=== PATIENT | male | born 1995 | race Caucasian/White ===

== ENCOUNTER 2021-12-18 03:14 | Emergency (ER) | payer SELFPAY ==
[~2021-12-18] VITALS: Ht 175.3 cm; Wt 81.2 kg
[2021-12-18 03:29] LABS: BASO % 1 % (0-3); EOS # 0.1 x10^3/uL (0.0-0.7); EOS % 1 % (0-3); HEMATOCRIT 44.5 % (39.0-53.0); HEMOGLOBIN 15.4 g/dL (13.0-17.5); LYMPH # 2.8 x10^3/uL (1.0-4.8); LYMPH % 40 % (24-48); MEAN CORPUSCULAR HEMOGLOBIN 31 pg (25-35); MEAN CORPUSCULAR HGB CONC 35 g/dL (31-37); MEAN CORPUSCULAR VOLUME 88 fL (79-100); MONO # 0.4 x10^3/uL (0.0-1.1); MONO % 6 % (0-9); NEUT # 3.7 x10^3/uL (1.8-7.7); NEUT % 53 % (31-73); PLATELET COUNT 237 x10^3/uL (140-400); RED BLOOD COUNT 5.05 x10^6/uL (4.30-5.70); RED CELL DISTRIBUTION WIDTH 12.9 % (11.5-14.5); WHITE BLOOD COUNT 7.1 x10^3/uL (4.0-11.0)
--- NOTE | 2021-12-18 03:36 | PHYS DOC ---
Adult General Chief Complaint Chief Complaint: OVERDOSE HPI HPI The patient is a 26-year-old male who is otherwise healthy. He presents for evaluation of an apparent inadvertent overdose of oral narcotic. Patient and his friend apparently took what they thought was Percocet (per her report to the ambulance crew) and shortly thereafter he became obtunded. EMS were called. When they arrived on scene patient was down on the ground beside his car, GCS of 3. He was breathing and had a pulse. EMS administered intranasal followed by IV Narcan with immediate improvement in level of consciousness. During transport and upon arrival to the emergency department patient with GCS of 15, moving all extremities equally and denying complaints. States he does not remember exactly what happened. Vital signs are appropriate here and the patient is in no acute distress. Review of Systems Review of Systems A 12 point review of systems was completed and was negative except where noted in HPI above. Current Medications Current Medications Current Medications Medications (Trade) Dose Ordered Sig/Darren Start Time Stop Time Status Last Admin Dose Admin Ondansetron HCl (Zofran) 4 mg 1X ONCE 12/18/21 04:00 12/18/21 04:02 DC 12/18/21 04:01 4 MG Allergies Allergies Allergies Coded Allergies Type Severity Reaction Last Updated Verified No Known Drug Allergies 12/18/21 No Physical Exam Physical Exam 26-year-old male appearing nontoxic and in no acute distress. Head is normocephalic and atraumatic. Neck is supple and nontender. Oropharynx is moist. Lungs are clear to auscultation at all stations. There is a normal S1 and S2 without rubs or gallops and capillary refill is appropriate, less than 2 seconds globally. Abdomen is soft, nontender nondistended. Skin is warm and dry without cyanosis, clubbing or edema. Psychiatrically, the patient demonstrates appropriate mood and affect and is alert. Neurologically, cranial nerves II through XII are intact and there are no lateralizing deficits seen. Speech is normal. Language is normal. Coordination is normal. There is no dysmetria with [id number] or hrdy-tn-[id number] bilaterally. Strength is 5 out of 5 in all joints of bilateral upper and lower extremities. Sensation is intact light touch in bilateral upper and lower extremities. Patient ambulates with a narrow, steady, non-ataxic gait here in the emergency department and is alert and oriented x4. Current Patient Data Vital Signs Vital Signs Date Time Temp Pulse Resp B/P (MAP) Pulse Ox O2 Delivery O2 Flow Rate FiO2 12/18/21 05:47 66 18 141/64 (89) 96 Room Air Lab Values Laboratory Tests Test 12/18/21 03:23 White Blood Count 7.1 x10^3/uL (4.0-11.0) Red Blood Count 5.05 x10^6/uL (4.30-5.70) Hemoglobin 15.4 g/dL (13.0-17.5) Hematocrit 44.5 % (39.0-53.0) Mean Corpuscular Volume 88 fL (79-100) Mean Corpuscular Hemoglobin 31 pg (25-35) Mean Corpuscular Hemoglobin Concent 35 g/dL (31-37) Red Cell Distribution Width 12.9 % (11.5-14.5) Platelet Count 237 x10^3/uL (140-400) Neutrophils (%) (Auto) 53 % (31-73) Lymphocytes (%) (Auto) 40 % (24-48) Monocytes (%) (Auto) 6 % (0-9) Eosinophils (%) (Auto) 1 % (0-3) Basophils (%) (Auto) 1 % (0-3) Neutrophils # (Auto) 3.7 x10^3/uL (1.8-7.7) Lymphocytes # (Auto) 2.8 x10^3/uL (1.0-4.8) Monocytes # (Auto) 0.4 x10^3/uL (0.0-1.1) Eosinophils # (Auto) 0.1 x10^3/uL (0.0-0.7) Basophils # (Auto) 0.0 x10^3/uL (0.0-0.2) Sodium Level 142 mmol/L (136-145) Potassium Level 3.5 mmol/L (3.5-5.1) Chloride Level 101 mmol/L (98-107) Carbon Dioxide Level 26 mmol/L (21-32) Anion Gap 15 (6-14) H Blood Urea Nitrogen 14 mg/dL (8-26) Creatinine 1.2 mg/dL (0.7-1.3) Estimated GFR (Cockcroft-Gault) 74.4 BUN/Creatinine Ratio 12 (6-20) Glucose Level 206 mg/dL (70-99) H Calcium Level 8.7 mg/dL (8.5-10.1) Total Bilirubin 1.0 mg/dL (0.2-1.0) Aspartate Amino Transferase (AST) 9 U/L (15-37) L Alanine Aminotransferase (ALT) 17 U/L (16-63) Alkaline Phosphatase 66 U/L (46-116) Total Protein 8.3 g/dL (6.4-8.2) H Albumin 4.2 g/dL (3.4-5.0) Albumin/Globulin Ratio 1.0 (1.0-1.7) Salicylates Level < 0.2 mg/dL (2.8-20.0) L Salicylate Last Dose Date Unk Salicylate Last Dose Time Unk Acetaminophen Level < 2 mcg/ml (10-30) L Acetaminophen Last Dose Date Unk Acetaminophen Last Dose Time Unk Ethyl Alcohol Level < 10 mg/dL (0-10) Laboratory Tests 12/18/21 03:23 Laboratory Tests 12/18/21 03:23 EKG EKG [] Radiology/Procedures Radiology/Procedures [] Course & Med Decision Making Course & Med Decision Making Checking basic and toxicology labs and will plan to observe the patient for several hours here in the emergency department to ensure that he does not resedate following his apparent opiate overdose prehospital. 0600: Labs unremarkable. Patient has declined to provide a urine sample. He has been observed for a number of hours here in the emergency department without any sedation and is alert and oriented x4. Repeat full formal neurologic examination is nonfocal. Patient is ambulatory with a narrow, steady gait. Friend is here to drive him home and will keep a close eye on him all day long. Patient is to follow-up closely with primary care and understands that if he feels worse instead of better, has recurrent symptoms or develops other new symptoms of concern that he should return to the emergency department immediately for reevaluation. All questions are answered. Dragon Disclaimer Dragon Disclaimer This electronic medical record was generated, in whole or in part, using a voice recognition dictation system. Departure Departure Impression: Primary Impression: Accidental opiate poisoning Disposition: HOME / SELF CARE / HOMELESS Condition: STABLE Patient Instructions: Narcotic Overdose Additional Instructions: Follow-up very closely with your primary care doctor in the office in the next 2 to 4 days for a reevaluation of your symptoms and to discussion of next best steps in care. Make sure that you are at home with family or otherwise have someone to watch you all day today. Do not drive or work or operate machinery until tomorrow. Drink plenty of fluids and get plenty of rest. Return to the emergency department right away for worsening symptoms of any kind or with any other new symptoms of concern. Problem Qualifiers Primary Impression: Accidental opiate poisoning Encounter type: initial encounter Qualified Codes: T40.601A - Poisoning by unspecified narcotics, accidental (unintentional), initial encounter BRINA BADILLO MD Dec 18, 2021 03:36
[2021-12-18 03:40] LABS: CALCIUM 8.7 mg/dL (8.5-10.1); CREATININE 1.2 mg/dL (0.7-1.3); GFR 74.4; POTASSIUM 3.5 mmol/L (3.5-5.1)
[2021-12-18 03:43] LABS: ACETAMIN < 2 mcg/ml (10-30); ETHANOL < 10 mg/dL (0-10); SALIC < 0.2 mg/dL (2.8-20.0)
[2021-12-18 03:45] LABS: ALBUMIN 4.2 g/dL (3.4-5.0); TOTAL PROTEIN 8.3 g/dL (6.4-8.2)
[2021-12-18] MEDS ORDERED: ONDANSETRON PF 4 MG/2 ML VIAL. IVP ONE (04:00)
[2021-12-18 06:17] VITALS: BP 131/66
== END 2021-12-18 06:48 | disposition home or self-care (01) ==
LOC: ER 03:14
DX: T40.601A Poisoning by unspecified narcotics, accidental (unintentional), initial encounter (principal); Y92.89 Other specified places as the place of occurrence of the external cause
CPT/HCPCS: 36415; 80053; 80329; 85025; 96374; 99285; G0480; J2405